=== PATIENT | female | born 1975 | race Caucasian/White ===

== ENCOUNTER 2018-08-07 08:43 | Emergency (ER) | payer BC ==
--- NOTE | 2018-08-07 09:08 | ER Document Report ---
ED General - General Chief Complaint: Abdominal Pain Stated Complaint: L SIDED RIB PAIN X3DAYS Time Seen by Provider: 08/07/18 09:06 Notes: Patient is a 43-year-old female recent cholecystectomy that presents to the emergency department for chief complaint of left upper quadrant pain. Patient recently had a cholecystectomy on 07/30/2018. She was recovering well from the surgery, and then yesterday and into today, she started feeling sharp pain under her left ribs, that was tender to palpate. She was seen at another emergency department and had a CT scan performed yesterday, that she reports demonstrated "gas" and she was discharged to home. She continued to have the pain, she was taking Tylenol, but it is not helping. She was prescribed Henderson but she has not taken that medication. She states the pain is worse with a deep breath, just under her left ribs. She denies noting associated fevers, chills, headaches, nausea, vomiting, diarrhea, dysuria or hematuria. Her cholecystectomy was performed laparoscopically Past Medical History: Denies chronic medical conditions Past Surgical History: Hysterectomy, cholecystectomy Social History: Admits to smoking cigarettes daily, denies alcohol or drug use Family History: Reviewed and noncontributory for presenting illness Allergies: Reviewed, see documented allergy list. REVIEW OF SYSTEMS: Unless otherwise stated in this report the patient's positive and negative responses for review of systems for constitutional, eyes, ENT, cardiovascular, respiratory, gastrointestinal, neurological, genitourinary, musculoskeletal, and integumentary systems and related systems to the presenting problem are either as stated in the HPI or were not pertinent or were negative for the symptoms and/or complaints related to the presenting medical problem. PHYSICAL EXAMINATION: Vital signs reviewed, nursing noted reviewed. GENERAL: Well-appearing, well-nourished and in no acute distress. HEAD: Atraumatic, normocephalic. EYES: Eyes appear normal, extraocular movements intact, sclera anicteric, conjunctiva are normal. ENT: nares patent, oropharynx clear without exudates. Moist mucous membranes. NECK: Normal range of motion, supple without lymphadenopathy LUNGS: Breath sounds clear to auscultation bilaterally and equal. No wheezes rales or rhonchi. HEART: Regular rate and rhythm without murmurs ABDOMEN: Soft, left upper quadrant tenderness to palpation normoactive bowel sounds. No distention, rebound, guarding, or rigidity. No masses appreciated. EXTREMITIES: Nontender, good range of motion, no pitting or edema. NEUROLOGICAL: No focal neurological deficits. Moves all extremities spontaneously Motor and sensory grossly intact on exam. PSYCH: Normal mood, normal affect. SKIN: Warm, Dry, normal turgor, no rashes or lesions noted on exposed skin TRAVEL OUTSIDE OF THE [place] IN LAST 30 DAYS: No - Related Data Allergies/Adverse Reactions: No Known Allergies Allergy (Verified 08/07/18 08:46) Past Medical History - Social History Smoking Status: Current Every Day Smoker Family History: Reviewed & Not Pertinent - Past Medical History Cardiac Medical History: Denies: Hx Coronary Artery Disease, Hx Heart Attack, Hx Hypertension Pulmonary Medical History: Reports: Hx Pneumonia Denies: Hx Asthma, Hx Bronchitis, Hx COPD Neurological Medical History: Denies: Hx Cerebrovascular Accident, Hx Seizures Renal/ Medical History: Reports: Hx Kidney Stones. Denies: Hx Peritoneal Dialysis Musculoskeletal Medical History: Denies Hx Arthritis Past Surgical History: Reports: Hx Breast Surgery, Hx Hysterectomy, Hx Neurologic Surgery - Craniotomy, BRAIN ABSCESS, Hx Thyroid Surgery - PARATHYROIDECTOMY - Immunizations Hx Diphtheria, Pertussis, Tetanus Vaccination: No Hx Pneumococcal Vaccination: 10/22/00 Physical Exam - Vital signs Vitals: Temp Pulse Resp BP Pulse Ox 98.1 F 87 18 112/73 100 08/07/18 08:49 08/07/18 08:49 08/07/18 08:49 08/07/18 08:49 08/07/18 08:49 Course - Re-evaluation Re-evalutation: Patient seen and examined vital signs reviewed. Laboratory data and imaging were ordered as appropriate for the patient's presenting symptoms and complaint, with consideration of any critical or life threatening conditions that may be associated with their obtained history and exam as noted above. Patient was treated with IV fluids and Toradol Results were reviewed when available and demonstrated very mild transaminitis, consistent with post cholecystectomy, not concerning, patient's pain is most consistent with postoperative gas pain, from laparoscopic surgery, is on the left side, and subcostal, and improved with anti-inflammatories. The patient was re-evaluated and was improved, stable, I do not feel that this patient has any life-threatening illnesses at this time, and given that she had CT imaging performed yesterday for the same pain, that was unremarkable, this is most likely as described above postoperative gas pain, this was described to the patient, she understands, she is given anticipatory guidance that this will most likely resolve in 48-72 hours, advised her to take naproxen, or her previously prescribed Henderson if needed for breakthrough pain. Results were discussed with the patient at this point, after careful consideration I feel that that patient can be discharged from the emergency department, the patient was educated treatments and reasons to return to the emergency department based on their presumed diagnosis as noted above, they were advised to followup with a primary care physician in 2-3 days. Patient was agreeable to plan of care. *Note is created using voice recognition software and may contain spelling, syntax or grammatical errors. Laboratory 08/07/18 08/07/18 08/07/18 09:30 09:30 10:00 WBC 5.6 RBC 4.83 Hgb 14.5 Hct 41.5 MCV 86 MCH 30.1 MCHC 35.0 RDW 13.5 Plt Count 244 Seg Neutrophils % 72.1 Lymphocytes % 17.3 Monocytes % 9.1 Eosinophils % 1.3 Basophils % 0.2 Absolute Neutrophils 4.1 Absolute Lymphocytes 1.0 Absolute Monocytes 0.5 Absolute Eosinophils 0.1 Absolute Basophils 0.0 Sodium 138.6 Potassium 4.3 Chloride 106 Carbon Dioxide 25 Anion Gap 8 BUN 13 Creatinine 0.60 Est GFR ( Amer) > 60 Est GFR (Non-Af Amer) > 60 Glucose 90 Calcium 9.5 Total Bilirubin 1.5 H Direct Bilirubin 0.3 Neonat Total Bilirubin Not Reportable Neonat Direct Bilirubin Not Reportable Neonat Indirect Bili Not Reportable AST 33 ALT 120 H Alkaline Phosphatase 62 Total Protein 6.2 L Albumin 3.9 Lipase 208.3 Urine Color YELLOW Urine Appearance SLIGHTLY-CLOUDY Urine pH 5.0 Ur Specific [place] 1.028 Urine Protein NEGATIVE Urine Glucose (UA) NEGATIVE Urine Ketones TRACE H Urine Blood NEGATIVE Urine Nitrite NEGATIVE Urine Bilirubin NEGATIVE Urine Urobilinogen 2.0 H Ur Leukocyte Esterase NEGATIVE Urine WBC (Auto) 2 Urine RBC (Auto) 6 Urine Bacteria (Auto) TRACE Squamous Epi Cells Auto 2 Urine Mucus (Auto) MANY Urine Ascorbic Acid NEGATIVE - Vital Signs Vital signs: Temp Pulse Resp BP Pulse Ox 97.7 F 74 17 111/72 99 08/07/18 12:20 08/07/18 12:20 08/07/18 12:20 08/07/18 12:20 08/07/18 12:20 - Laboratory Result Diagrams: 08/07/18 09:30 08/07/18 09:30 Laboratory results interpreted by me: 08/07/18 08/07/18 09:30 10:00 Total Bilirubin 1.5 H ALT 120 H Total Protein 6.2 L Urine Ketones TRACE H Urine Urobilinogen 2.0 H Discharge - Discharge Clinical Impression: Abdominal pain Qualifiers: Abdominal location: left upper quadrant Qualified Code(s): R10.12 - Left upper quadrant pain Condition: Stable Disposition: HOME, SELF-CARE Instructions: Abdominal Pain ([facility]) Additional Instructions: Please return to the emergency department if you have any worsening, or concern of your symptoms. Please return to the emergency department if you develop chest pain, difficulty breathing, severe abdominal pain, or ongoing vomiting. Please follow-up with your primary care physician in 2-3 days and any other recommended physicians. If prescribed, take all medications as directed. If you have any questions or concerns do not hesitate to return the emergency department for evaluation. Your symptoms should improve in the next 24-72 hours, try taking deep breaths, and take the anti-inflammatory as needed every 12 hours. Prescriptions: Naproxen [Naprosyn] 500 mg PO Q12H #30 tablet Forms: Return to Work Referrals: RAMOS PULIDO MD [ACTIVE STAFF] - Follow up in 3-5 days
[2018-08-07] MEDS ORDERED: NORMAL SALINE 1000 ML 1,000 ML IV ONE (09:37)
[2018-08-07] MEDS ORDERED: KETOROLAC TROMETHAMINE INJ/PF 30 MG/1 ML SDV IV ONE (09:37)
[2018-08-07 09:51] LABS: ABSOLUTE EOSINOPHILS # (AUTO) 0.1 10^3/uL (0.0-0.6); ABSOLUTE MONOCYTES (AUTO) 0.5 10^3/uL (0.1-1.4); ABSOLUTE NEUT (AUTO) 4.1 10^3/uL (1.7-8.2); BASOPHILS % (AUTO) 0.2 % (0-2); EOSINOPHILS % (AUTO) 1.3 % (0-6); HEMATOCRIT 41.5 % (36.0-47.0); HEMOGLOBIN 14.5 g/dL (12.0-15.5); LYMPHOCYTES % (AUTO) 17.3 % (13-45); MEAN CORPUSCULAR HEMOGLOBIN 30.1 pg (27.0-33.4); MEAN CORPUSCULAR VOLUME 86 fl (80-97); MONOCYTES % (AUTO) 9.1 % (3-13); PLATELET COUNT 244 10^3/uL (150-450); RED BLOOD COUNT 4.83 10^6/uL (3.72-5.28); RED CELL DISTRIBUTION WIDTH 13.5 % (11.5-14.0); SEGMENTED NEUTROPHILS % (AUTO) 72.1 % (42-78); TOTAL CELLS COUNTED % (AUTO) 100 %; WHITE BLOOD COUNT 5.6 10^3/uL (4.0-10.5)
[2018-08-07 10:07] LABS: ALANINE AMINOTRANSFERASE 120 U/L (9-52); ALBUMIN 3.9 g/dL (3.5-5.0); ALKALINE PHOSPHATASE 62 U/L (38-126); ANION GAP 8 (5-19); ASPARTATE AMINO TRANSFERASE 33 U/L (14-36); BILIRUBIN,DIRECT 0.3 mg/dL (0.0-0.4); BILIRUBIN,TOTAL 1.5 mg/dL (0.2-1.3); BLOOD UREA NITROGEN 13 mg/dL (7-20); CALCIUM 9.5 mg/dL (8.4-10.2); CARBON DIOXIDE 25 mmol/L (22-30); CHLORIDE 106 mmol/L (98-107); GLUCOSE 90 mg/dL (75-110); LIPASE 208.3 U/L (23-300); POTASSIUM 4.3 mmol/L (3.6-5.0); SODIUM 138.6 mmol/L (137-145); TOTAL PROTEIN 6.2 g/dL (6.3-8.2)
[2018-08-07 10:20] LABS: APPEARANCE,URINE SLIGHTLY-CLOUDY; BILIRUBIN,URINE NEGATIVE (NEGATIVE); COLOR,URINE YELLOW; GLUCOSE, URINE NEGATIVE (NEGATIVE); KETONES,URINE TRACE mg/dL (NEGATIVE); LEUKOCYTE ESTERASE,URINE NEGATIVE (NEGATIVE); NITRITE,URINE NEGATIVE (NEGATIVE); PROTEIN,URINE NEGATIVE (NEGATIVE); URINE SPECIFIC GRAVITY 1.028
[2018-08-07 12:21] VITALS: BP 111/72
== END 2018-08-07 12:20 | disposition home or self-care (01) ==
LOC: ER 08:43
DX: R10.12 Left upper quadrant pain (principal); R07.81 Pleurodynia; Z90.49 Acquired absence of other specified parts of digestive tract; F17.210 Nicotine dependence, cigarettes, uncomplicated
CPT/HCPCS: 99284; 96361; 96374; 36415; 83690; 85025; 80053; 81001; J1885; J7030

== ENCOUNTER 2018-08-17 10:19 | Emergency (ER) | payer BC ==
--- NOTE | 2018-08-17 10:56 | ER Document Report ---
ED General <MICHELLE SAMAYOAI - Last Filed: 08/17/18 13:37> - General TRAVEL OUTSIDE OF THE [place] IN LAST 30 DAYS: No <CARLOS HYDE - Last Filed: 08/17/18 14:02> - General Chief Complaint: Numbness Stated Complaint: HANDS/FEET NUMB Time Seen by Provider: 08/17/18 10:50 Notes: Patient is a 43-year-old female that presents to the emergency department for chief complaint of numbness and tingling in the hands and feet. Patient states she is been having these symptoms for a few days now, she recently had a cholecystectomy. 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 She has been trying to drink milk, but she is been having diarrhea with this, since she just had her gallbladder out. She denies having any fevers, chills, night sweats, trismus, difficulty breathing, or chest pain. Past Medical History: Kidney stones Past Surgical History: Partial parathyroidectomy, hysterectomy, cholecystectomy Social History: Denies current tobacco, alcohol or drug use Family History: Reviewed and noncontributory for presenting illness Allergies: Reviewed, see documented allergy list. REVIEW OF SYSTEMS: Unless otherwise stated in this report the patient's positive and negative responses for review of systems for constitutional, eyes, ENT, cardiovascular, respiratory, gastrointestinal, neurological, genitourinary, musculoskeletal, and integumentary systems and related systems to the presenting problem are either as stated in the HPI or were not pertinent or were negative for the symptoms and/or complaints related to the presenting medical problem. PHYSICAL EXAMINATION: Vital signs reviewed, nursing noted reviewed. GENERAL: Well-appearing, well-nourished and in no acute distress. HEAD: Atraumatic, normocephalic. EYES: Eyes appear normal, extraocular movements intact, sclera anicteric, conjunctiva are normal. ENT: nares patent, oropharynx clear without exudates. Moist mucous membranes. NECK: Normal range of motion, supple without lymphadenopathy LUNGS: Breath sounds clear to auscultation bilaterally and equal. No wheezes rales or rhonchi. HEART: Regular rate and rhythm without murmurs ABDOMEN: Soft, nontender, normoactive bowel sounds. No rebound, guarding, or rigidity. No masses appreciated. EXTREMITIES: Nontender, good range of motion, no pitting or edema. NEUROLOGICAL: No focal neurological deficits. Moves all extremities spontaneously Motor and sensory grossly intact on exam. No clonus or tetany noted on exam PSYCH: Normal mood, normal affect. SKIN: Warm, Dry, normal turgor, no rashes or lesions noted on exposed skin (CARLOS HYDE) - Related Data Allergies/Adverse Reactions: No Known Allergies Allergy (Verified 08/17/18 10:19) Past Medical History - Social History Smoking Status: Never Smoker Family History: Reviewed & Not Pertinent Patient has suicidal ideation: No Patient has homicidal ideation: No - Past Medical History Cardiac Medical History: Denies: Hx Coronary Artery Disease, Hx Heart Attack, Hx Hypertension Pulmonary Medical History: Reports: Hx Pneumonia Denies: Hx Asthma, Hx Bronchitis, Hx COPD Neurological Medical History: Denies: Hx Cerebrovascular Accident, Hx Seizures Renal/ Medical History: Reports: Hx Kidney Stones. Denies: Hx Peritoneal Dialysis Musculoskeletal Medical History: Denies Hx Arthritis Past Surgical History: Reports: Hx Breast Surgery, Hx Cholecystectomy, Hx Hysterectomy, Hx Neurologic Surgery - Craniotomy, BRAIN ABSCESS, Hx Thyroid Surgery - PARATHYROIDECTOMY - Immunizations Hx Diphtheria, Pertussis, Tetanus Vaccination: No Hx Pneumococcal Vaccination: 10/22/00 <CARLOS HYDE - Last Filed: 08/17/18 14:02> - Vital signs Vitals: Temp Pulse Resp BP Pulse Ox 97.9 F 98 14 110/74 99 08/17/18 10:22 08/17/18 10:22 08/17/18 10:22 08/17/18 10:22 08/17/18 10:22 Course - Laboratory Result Diagrams: 08/17/18 11:00 08/17/18 11:00 <KORIN SAMAYOA - Last Filed: 08/17/18 13:37> - Laboratory Result Diagrams: 08/17/18 11:00 08/17/18 11:00 <CARLOS HYDE - Last Filed: 08/17/18 14:02> - Re-evaluation Re-evalutation: Patient seen and examined vital signs reviewed. Laboratory data and imaging were ordered as appropriate for the patient's presenting symptoms and complaint, with consideration of any critical or life threatening conditions that may be associated with their obtained history and exam as noted above. Results were reviewed when available and demonstrated essentially normal blood work, she has slight elevation in bilirubin, which has been chronic for this patient for some time, no evidence of acute liver issues The patient was re-evaluated and was tearful on exam, she was asking what was wrong, stating that she has been stressed, with arguing with her boyfriend, and thinks this may be causing some of her symptoms, at this point I felt that the patient may benefit from behavioral health evaluation, discussed this with her and she was agreeable, consult was placed. I offered her medication for possible anxiety, while in the emergency department, however the patient did drive today and has her son with her, and does not have a ride, so any benzodiazepines or antihistamines. Patient agreeable to discuss with behavioral health and any possible recommendations. Patient was seen by behavioral health, they recommended taking her prescribed hydroxyzine which is just prescribed by her primary care, she is seen at [facility] and has a therapist there, recommended follow-up with them, and to follow-up with her primary care physician on all of her other blood tests that were done recently. Patient agreeable and discharged to home. Evaluation was most consistent with stress reaction/anxiety. Results were discussed with the patient at this point, after careful consideration I feel that that patient can be discharged from the emergency department, the patient was educated treatments and reasons to return to the emergency department based on their presumed diagnosis as noted above, they were advised to followup with a primary care physician in 2-3 days. Patient was agreeable to plan of care. *Note is created using voice recognition software and may contain spelling, syntax or grammatical errors. Laboratory 08/17/18 08/17/18 11:00 11:00 WBC 6.0 RBC 5.09 Hgb 15.3 Hct 43.8 MCV 86 MCH 30.0 MCHC 34.9 RDW 13.4 Plt Count 285 Seg Neutrophils % 66.7 Lymphocytes % 21.5 Monocytes % 10.5 Eosinophils % 0.8 Basophils % 0.5 Absolute Neutrophils 4.0 Absolute Lymphocytes 1.3 Absolute Monocytes 0.6 Absolute Eosinophils 0.0 Absolute Basophils 0.0 Sodium 142.0 Potassium 4.2 Chloride 102 Carbon Dioxide 27 Anion Gap 13 BUN 12 Creatinine 0.63 Est GFR ( Amer) > 60 Est GFR (Non-Af Amer) > 60 Glucose 76 Calcium 9.5 Total Bilirubin 1.8 H Direct Bilirubin 0.2 Neonat Total Bilirubin Not Reportable Neonat Direct Bilirubin Not Reportable Neonat Indirect Bili Not Reportable AST 20 ALT 28 Alkaline Phosphatase 54 Total Protein 6.3 Albumin 4.1 Vitamin B12 331.0 (CARLOS HYDE) - Vital Signs Vital signs: Temp Pulse Resp BP Pulse Ox 97.9 F 72 16 109/71 100 08/17/18 10:22 08/17/18 13:59 08/17/18 13:59 08/17/18 13:59 08/17/18 13:59 - Laboratory Laboratory results interpreted by me: 08/17/18 11:00 Total Bilirubin 1.8 H Discharge <KORIN SAMAYOA - Last Filed: 08/17/18 13:37> <CARLOS HYDE - Last Filed: 08/17/18 14:02> - Discharge Clinical Impression: Stress reaction, Paresthesia Condition: Stable Disposition: HOME, SELF-CARE Instructions: Anxiety ([facility]) Additional Instructions: You were seen in the ED and evaluated by the Medical and Behavioral Health Teams for anxiety and determined to be appropriate for discharge at this time. You were given a resource list of outpatient providers to assist you upon discharge. Also, discussed appropriate coping skills. Referrals: KATIE BOLAÑOS PA-C [Primary Care Provider] - Follow up in 3-5 days
[2018-08-17 11:22] LABS: ABSOLUTE LYMPHOCYTES (AUTO) 1.3 10^3/uL (0.5-4.7); ABSOLUTE MONOCYTES (AUTO) 0.6 10^3/uL (0.1-1.4); BASOPHILS % (AUTO) 0.5 % (0-2); EOSINOPHILS % (AUTO) 0.8 % (0-6); HEMATOCRIT 43.8 % (36.0-47.0); HEMOGLOBIN 15.3 g/dL (12.0-15.5); LYMPHOCYTES % (AUTO) 21.5 % (13-45); MEAN CORPUSCULAR HGB CONC 34.9 g/dL (32.0-36.0); MEAN CORPUSCULAR VOLUME 86 fl (80-97); MONOCYTES % (AUTO) 10.5 % (3-13); PLATELET COUNT 285 10^3/uL (150-450); RED BLOOD COUNT 5.09 10^6/uL (3.72-5.28); RED CELL DISTRIBUTION WIDTH 13.4 % (11.5-14.0); SEGMENTED NEUTROPHILS % (AUTO) 66.7 % (42-78); TOTAL CELLS COUNTED % (AUTO) 100 %
[2018-08-17 11:37] LABS: ALANINE AMINOTRANSFERASE 28 U/L (9-52); ALBUMIN 4.1 g/dL (3.5-5.0); ALKALINE PHOSPHATASE 54 U/L (38-126); ANION GAP 13 (5-19); ASPARTATE AMINO TRANSFERASE 20 U/L (14-36); BILIRUBIN,DIRECT 0.2 mg/dL (0.0-0.4); BILIRUBIN,TOTAL 1.8 mg/dL (0.2-1.3); BLOOD UREA NITROGEN 12 mg/dL (7-20); CALCIUM 9.5 mg/dL (8.4-10.2); CARBON DIOXIDE 27 mmol/L (22-30); CHLORIDE 102 mmol/L (98-107); GLUCOSE 76 mg/dL (75-110); POTASSIUM 4.2 mmol/L (3.6-5.0); TOTAL PROTEIN 6.3 g/dL (6.3-8.2)
[2018-08-17 13:59] VITALS: BP 109/71
--- NOTE | 2018-08-17 14:11 | PSYCHOLOGICAL NOTE ---
Psych Note - Psych Note Date seen by psych provider: 08/17/18 Time seen by psych provider: 01:35 Psych Note: Reason for consult: anxiety PT STATES SHE HAS PROBLEMS WITH HER THYROID. STATES IN THE PAST SHE HAS HAD ISSUES WITH CALCIUM AND POTASSIUM LEVELS. STATES OVER THE PAST FEW DAYS SHE HAS HAD NUMBNESS IN HER HANDS AND FEET. STATES SHE WAS SEEN BY HER PROVIDER YESTERDAY AND BLOOD WORK WAS DONE BUT NO RESULTS YET Patient disclosed that she had a verbal altercation (disagreements over the ex- ) with her live in boyfriend this past night. Patient reports that her body started getting hot and she felt like she was about to faint. Pt. denies homicide/suicide, no prior suicide attempts. Her primary doctor prescribed hxdroxyzine for her panic attacks and picked up the prescription last night. Pt was seeing a therapist last year at [facility] and is interested in getting back into therapy due to relationship discord. This Clinician provided a resource list of outpatient providers to include [facility] and [facility]. Patient is alert and oriented to person, place, time and circumstance. Patient' s mood is dysphoric with a tearful affect. Eye contact was well maintained. Attention and concentration are fair. Conversational speech was within normal rate and tone. Patient presents with intact reality base presentation i.e. thought processes are organized and linear. Intellectual abilities appear to be within average range. Insight, judgment and impulse control is fair. No medication recommendations at this time Diagnosis 300.02 (F41.1) Generalized Anxiety Disorder Impression/Plan: Patient is cleared from acute psychiatric services. Patient denies SI/HI ideation with no plans,means or intent. Patient is planning to contact an outpatient mental health provider to reconvene her therapy and medication management. Patient engages in forward thinking and is interested in counseling for relationsip discord. Dr. Velez was consulted on the care and management of this patient; attending physician is in agreement with recommendations and disposition.
== END 2018-08-17 14:00 | disposition home or self-care (01) ==
LOC: ER 10:19
DX: F43.9 Reaction to severe stress, unspecified (principal); R20.2 Paresthesia of skin; R20.0 Anesthesia of skin; R19.7 Diarrhea, unspecified; E89.0 Postprocedural hypothyroidism; Z90.49 Acquired absence of other specified parts of digestive tract
CPT/HCPCS: 36415; 80053; 82607; 85025; 99285

== ENCOUNTER 2018-09-17 16:11 | Emergency (ER) | payer BC ==
[2018-09-17] MEDS ORDERED: RINGERS SOLUTION,LACTATED 1,000 ML IV ONE (17:27)
[2018-09-17] MEDS ORDERED: ONDANSETRON HCL INJ/PF 4 MG/2 ML SDV IV ONE (17:27)
--- NOTE | 2018-09-17 17:28 | ER Document Report ---
ED Medical Screen (RME) - General Chief Complaint: Headache Stated Complaint: HEADACHE Time Seen by Provider: 09/17/18 17:16 TRAVEL OUTSIDE OF THE [place] IN LAST 30 DAYS: No - Related Data Allergies/Adverse Reactions: No Known Allergies Allergy (Verified 08/17/18 10:19) Past Medical History - Social History Chew tobacco use (# tins/day): No Frequency of alcohol use: None Drug Abuse: None - Past Medical History Cardiac Medical History: Denies: Hx Coronary Artery Disease, Hx Heart Attack, Hx Hypertension Pulmonary Medical History: Reports: Hx Pneumonia Denies: Hx Asthma, Hx Bronchitis, Hx COPD Neurological Medical History: Denies: Hx Cerebrovascular Accident, Hx Seizures Renal/ Medical History: Reports: Hx Kidney Stones. Denies: Hx Peritoneal Dialysis Musculoskeltal Medical History: Denies Hx Arthritis Past Surgical History: Reports: Hx Breast Surgery, Hx Cholecystectomy, Hx Hysterectomy, Hx Neurologic Surgery - Craniotomy, BRAIN ABSCESS, Hx Thyroid Surgery - PARATHYROIDECTOMY - Immunizations Hx Diphtheria, Pertussis, Tetanus Vaccination: No Physical Exam - Vital signs Vitals: Temp Pulse Resp BP Pulse Ox 98.0 F 94 12 119/75 99 09/17/18 16:19 09/17/18 16:19 09/17/18 16:19 09/17/18 16:19 09/17/18 16:19 Course - Re-evaluation Re-evalutation: 43-year-old woman who presents for persistent headache as well as visual disturbance over the last several months with associated tremulousness weakness for which she has been evaluated by an pc installation engineer as well as her primary physician. There is some concern that this could be related to her adrenal glands, her thyroid gland or some other issue but it continued to be called anxiety throughout that time for which she has taken low-dose Ativan with minimal help. We will initiate a broad workup including imaging of the head, blood tests. I have seen and evaluated this patient in rapid medical examination. She will require further evaluation and disposition determination by secondary provider. - Vital Signs Vital signs: Temp Pulse Resp BP Pulse Ox 98.0 F 94 12 119/75 99 09/17/18 16:19 09/17/18 16:19 09/17/18 16:19 09/17/18 16:19 09/17/18 16:19 - Laboratory Result Diagrams: 09/17/18 17:56 09/17/18 17:56 Doctor's Discharge - Discharge Referrals: KATIE BOLAÑOS PA-C [Primary Care Provider] - Follow up as needed
[2018-09-17 18:21] LABS: ABSOLUTE EOSINOPHILS # (AUTO) 0.1 10^3/uL (0.0-0.6); ABSOLUTE LYMPHOCYTES (AUTO) 1.6 10^3/uL (0.5-4.7); ABSOLUTE MONOCYTES (AUTO) 0.6 10^3/uL (0.1-1.4); ABSOLUTE NEUT (AUTO) 3.7 10^3/uL (1.7-8.2); BASOPHILS % (AUTO) 0.4 % (0-2); EOSINOPHILS % (AUTO) 1.1 % (0-6); HEMATOCRIT 41.8 % (36.0-47.0); HEMOGLOBIN 14.3 g/dL (12.0-15.5); LYMPHOCYTES % (AUTO) 27.2 % (13-45); MEAN CORPUSCULAR HEMOGLOBIN 29.7 pg (27.0-33.4); MEAN CORPUSCULAR HGB CONC 34.2 g/dL (32.0-36.0); MEAN CORPUSCULAR VOLUME 87 fl (80-97); MONOCYTES % (AUTO) 9.6 % (3-13); PLATELET COUNT 230 10^3/uL (150-450); RED BLOOD COUNT 4.81 10^6/uL (3.72-5.28); RED CELL DISTRIBUTION WIDTH 13.3 % (11.5-14.0); SEGMENTED NEUTROPHILS % (AUTO) 61.7 % (42-78); TOTAL CELLS COUNTED % (AUTO) 100 %; WHITE BLOOD COUNT 6.1 10^3/uL (4.0-10.5)
--- NOTE | 2018-09-17 18:29 | RADIOLOGY REPORT (SQ) ---
EXAM DESCRIPTION: CT HEAD WITHOUT COMPLETED DATE/TIME: 09/17/2018 6:06 pm REASON FOR STUDY: headache, hx of previous surgeries COMPARISON: None. TECHNIQUE: Axial images acquired through the brain without intravenous contrast. Images reviewed wi th bone, brain and subdural windows. Images stored on PACS. All CT scanners at this facility use dose modulation, iterative reconstruction, and/or weight based d osing when appropriate to reduce radiation dose to as low as reasonably achievable (ALARA). [facility]: Dose Right [facility]: CareDose [facility]: Dose Right [facility]: Teradose 4D [facility]: [employer] RADIATION DOSE: CT Rad equipment meets quality standard of care and radiation dose reduction techniq ues were employed. CTDIvol: 53.2 mGy. DLP: 1124 mGy-cm. mGy. LIMITATIONS: None. FINDINGS: VENTRICLES: Normal size and contour. CEREBRUM: No masses. No hemorrhage. No midline shift. No evidence for acute infarction. Normal gra y/white matter differentiation. A small focus of hypoattenuation seen within the left parieto-occipi john lobe likely represents a small lacunar infarct. . CEREBELLUM: No masses. No hemorrhage. No alteration of density. No evidence for acute infarction. EXTRAAXIAL SPACES: No fluid collections. No masses. ORBITS AND GLOBE: No intra- or extraconal masses. Normal contour of globe without masses. CALVARIUM: No fracture. PARANASAL SINUSES: Postsurgical changes are seen of the right mastoid air cells. The paranasal sinus es and left mastoid air cells appear clear. SOFT TISSUES: No mass or hematoma. OTHER: No other significant finding. IMPRESSION: Left parieto-occipital lacunar infarct. No acute findings. EVIDENCE OF ACUTE STROKE: NO. COMMENT: Quality ID # [id number]: Final reports with documentation of one or more dose reduction techniques (e.g., Automated exposure control, adjustment of the mA and/or kV according to patient size, use of iterative reconstruction technique) TECHNICAL DOCUMENTATION: JOB ID: [id number]- All Rights Reserved Reading location - IP/workstation name: [email or web address]
[2018-09-17 18:37] LABS: ALANINE AMINOTRANSFERASE 16 U/L (9-52); ALBUMIN 4.2 g/dL (3.5-5.0); ALKALINE PHOSPHATASE 49 U/L (38-126); ANION GAP 10 (5-19); ASPARTATE AMINO TRANSFERASE 18 U/L (14-36); BILIRUBIN,DIRECT 0.3 mg/dL (0.0-0.4); BILIRUBIN,TOTAL 1.2 mg/dL (0.2-1.3); BLOOD UREA NITROGEN 16 mg/dL (7-20); CALCIUM 9.1 mg/dL (8.4-10.2); CARBON DIOXIDE 26 mmol/L (22-30); CHLORIDE 106 mmol/L (98-107); GLUCOSE 96 mg/dL (75-110); POTASSIUM 4.3 mmol/L (3.6-5.0); SODIUM 141.8 mmol/L (137-145); TOTAL PROTEIN 6.5 g/dL (6.3-8.2)
[2018-09-17 18:53] LABS: FREE T4 (FREE THYROXINE) 1.03 ng/dL (0.78-2.19)
[2018-09-17 19:07] LABS: THYROID STIMULATING HORMONE 1.22 uIU/mL (0.47-4.68)
--- NOTE | 2018-09-17 22:24 | ER Document Report ---
ED General - General Chief Complaint: Headache Stated Complaint: HEADACHE Time Seen by Provider: 09/17/18 17:16 TRAVEL OUTSIDE OF THE [place] IN LAST 30 DAYS: No - HPI Patient complains to provider of: L sided SMITH since the weekend, bilateral hand numbness, anxiety Notes: 43-year-old female presents to the emergency department with headache on her left side since the weekend, numbness in both hands, nausea, and feeling nervous. She says the headache started this on Sunday on her left side that starts in the front and kind of moves to the back and into her ear, she denies any eye pain or vision changes, endorses dizziness, endorses left ear pain, denies any recent illness or sick contacts. Endorses nausea and states she gets frequent PVCs several a day. Patient recently seen in the emergency department and referred to behavioral health. She says she takes Ativan 0.5 mg twice a day currently and was prescribed hydroxyzine for which she does not take because it gives her "brain fog". - Related Data Allergies/Adverse Reactions: No Known Allergies Allergy (Verified 08/17/18 10:19) Past Medical History - Social History Smoking Status: Current Some Day Smoker Chew tobacco use (# tins/day): No Frequency of alcohol use: None Drug Abuse: None Family History: Reviewed & Not Pertinent Patient has suicidal ideation: No Patient has homicidal ideation: No - Past Medical History Cardiac Medical History: Denies: Hx Coronary Artery Disease, Hx Heart Attack, Hx Hypertension Pulmonary Medical History: Reports: Hx Pneumonia Denies: Hx Asthma, Hx Bronchitis, Hx COPD Neurological Medical History: Denies: Hx Cerebrovascular Accident, Hx Seizures Renal/ Medical History: Reports: Hx Kidney Stones. Denies: Hx Peritoneal Dialysis Musculoskeletal Medical History: Denies Hx Arthritis Past Surgical History: Reports: Hx Breast Surgery, Hx Cholecystectomy, Hx Hysterectomy, Hx Neurologic Surgery - Craniotomy, BRAIN ABSCESS, Hx Thyroid Surgery - PARATHYROIDECTOMY - Immunizations Hx Diphtheria, Pertussis, Tetanus Vaccination: No Hx Pneumococcal Vaccination: 10/22/00 Review of Systems - Review of Systems Constitutional: See HPI EENT: See HPI Cardiovascular: See HPI Respiratory: See HPI Gastrointestinal: See HPI Genitourinary: See HPI Female Genitourinary: No symptoms reported Musculoskeletal: No symptoms reported Skin: No symptoms reported Hematologic/Lymphatic: No symptoms reported Neurological/Psychological: See HPI Physical Exam - Vital signs Vitals: Temp Pulse Resp BP Pulse Ox 98.0 F 94 12 119/75 99 09/17/18 16:19 09/17/18 16:19 09/17/18 16:19 09/17/18 16:19 09/17/18 16:19 Interpretation: Normal - General General appearance: Appears well, Alert - HEENT Head: Normocephalic, Atraumatic Eyes: Normal Pupils: PERRL - Respiratory Respiratory status: No respiratory distress Chest status: Nontender Breath sounds: Normal Chest palpation: Normal - Cardiovascular Rhythm: Regular Heart sounds: Normal auscultation Murmur: No - Abdominal Inspection: Normal Distension: No distension Bowel sounds: Normal Tenderness: Nontender Organomegaly: No organomegaly - Back Back: Normal, Nontender - Extremities General upper extremity: Normal inspection, Nontender, Normal color, Normal ROM , Normal temperature General lower extremity: Normal inspection, Nontender, Normal color, Normal ROM , Normal temperature, Normal weight bearing. No: Lit's sign - Neurological Neuro grossly intact: Yes Cognition: Normal Orientation: AAOx4 Meka Coma Scale Eye Opening: Spontaneous Meka Coma Scale Verbal: Oriented Isom Coma Scale Motor: Obeys Commands Meka Coma Scale Total: 15 Speech: Normal Motor strength normal: LUE, RUE, LLE, RLE Sensory: Normal - Psychological Associated symptoms: Normal affect, Normal mood - Skin Skin Temperature: Warm Skin Moisture: Dry Skin Color: Normal Course - Re-evaluation Re-evalutation: 09/17/18 23:[address] is negative for any acute ischemia or intracranial bleed. All lab work showed no evidence of abnormalities. Most likely this patient's symptoms are related to her anxiety. She states she takes Ativan 0.5 mg 2 times per day and endorses relief of her symptoms. She has a behavioral health appointment for the end of September in which she is waiting to see. No focal neurological deficits, she can feel sensation to light touch bilaterally. Most likely she will benefit from some type of an SSRI to help her symptoms. This time her headache does not represent any life-threatening concern. 09/17/18 23:13 - Vital Signs Vital signs: Temp Pulse Resp BP Pulse Ox 98.0 F 94 12 119/75 99 09/17/18 16:19 09/17/18 16:19 09/17/18 16:19 09/17/18 16:19 09/17/18 16:19 - Laboratory Result Diagrams: 09/17/18 17:56 09/17/18 17:56 Discharge - Discharge Clinical Impression: Headache Qualifiers: Headache type: unspecified Headache chronicity pattern: unspecified pattern Intractability: not intractable Qualified Code(s): R51 - Headache Condition: Good Disposition: HOME, SELF-CARE Instructions: Headache ([facility]) Additional Instructions: Seen in the emergency department this evening for headache and numbness of your hands. Her head CT showed no evidence of any acute injury. Also, your lab work not show any evidence of any illness or any abnormalities. At this point, safe to discharge home. If you notice any weakness, especially weakness on one side, loss of consciousness, vision changes, intractable vomiting, or have any other concerns please return to the emergency department. Referrals: KATIE BOLAÑOS PA-C [Primary Care Provider] - Follow up as needed
[2018-09-17] MEDS ORDERED: IBUPROFEN 600 MG TABLET PO ONE (23:10)
[2018-09-17 23:51] VITALS: BP 104/67
== END 2018-09-17 23:48 | disposition home or self-care (01) ==
LOC: ER 16:11
DX: R51 Headache (principal); R20.0 Anesthesia of skin; F41.9 Anxiety disorder, unspecified; F17.200 Nicotine dependence, unspecified, uncomplicated; Z90.49 Acquired absence of other specified parts of digestive tract; Z90.710 Acquired absence of both cervix and uterus
CPT/HCPCS: 36415; 70450; 80053; 84439; 84443; 85025; 99284

== ENCOUNTER 2019-01-14 20:24 | Emergency (ER) | payer BC, OTHER ==
[2019-01-14] MEDS ORDERED: RINGERS SOLUTION,LACTATED 1,000 ML IV ONE (21:22)
[2019-01-14 21:58] LABS: ABSOLUTE LYMPHOCYTES (AUTO) 1.9 10^3/uL (0.5-4.7); ABSOLUTE MONOCYTES (AUTO) 0.7 10^3/uL (0.1-1.4); ABSOLUTE NEUT (AUTO) 5.4 10^3/uL (1.7-8.2); BASOPHILS % (AUTO) 0.2 % (0-2); EOSINOPHILS % (AUTO) 0.5 % (0-6); HEMATOCRIT 39.5 % (36.0-47.0); HEMOGLOBIN 13.9 g/dL (12.0-15.5); LYMPHOCYTES % (AUTO) 23.9 % (13-45); MEAN CORPUSCULAR HEMOGLOBIN 30.5 pg (27.0-33.4); MEAN CORPUSCULAR HGB CONC 35.1 g/dL (32.0-36.0); MEAN CORPUSCULAR VOLUME 87 fl (80-97); MONOCYTES % (AUTO) 8.5 % (3-13); PLATELET COUNT 228 10^3/uL (150-450); RED BLOOD COUNT 4.55 10^6/uL (3.72-5.28); RED CELL DISTRIBUTION WIDTH 13.5 % (11.5-14.0); SEGMENTED NEUTROPHILS % (AUTO) 66.9 % (42-78); TOTAL CELLS COUNTED % (AUTO) 100 %
[2019-01-14] MEDS ORDERED: KETOROLAC TROMETHAMINE INJ/PF 30 MG/1 ML SDV IV ONE (22:07)
[2019-01-14] MEDS ORDERED: DIPHENHYDRAMINE HCL 50 MG/ML VIAL IV ONE (22:07)
[2019-01-14] MEDS ORDERED: ONDANSETRON HCL INJ/PF 4 MG/2 ML SDV IV ONE (22:07)
[2019-01-14 22:16] LABS: ALANINE AMINOTRANSFERASE 24 U/L (9-52); ALBUMIN 3.9 g/dL (3.5-5.0); ALKALINE PHOSPHATASE 51 U/L (38-126); ANION GAP 5 (5-19); ASPARTATE AMINO TRANSFERASE 22 U/L (14-36); BILIRUBIN,DIRECT 0.1 mg/dL (0.0-0.4); BLOOD UREA NITROGEN 13 mg/dL (7-20); CALCIUM 9.5 mg/dL (8.4-10.2); CARBON DIOXIDE 28 mmol/L (22-30); CHLORIDE 104 mmol/L (98-107); GLUCOSE 92 mg/dL (75-110); POTASSIUM 4.1 mmol/L (3.6-5.0); SODIUM 136.6 mmol/L (137-145); TOTAL PROTEIN 6.3 g/dL (6.3-8.2)
[2019-01-14 22:33] LABS: APPEARANCE,URINE SLIGHTLY-CLOUDY; BILIRUBIN,URINE NEGATIVE (NEGATIVE); COLOR,URINE YELLOW; FREE T3 3.98 pg/mL (2.77-5.27); FREE T4 (FREE THYROXINE) 1.29 ng/dL (0.78-2.19); GLUCOSE, URINE NEGATIVE (NEGATIVE); KETONES,URINE 20 mg/dL (NEGATIVE); LEUKOCYTE ESTERASE,URINE NEGATIVE (NEGATIVE); NITRITE,URINE NEGATIVE (NEGATIVE); PROTEIN,URINE NEGATIVE (NEGATIVE); URINE SPECIFIC GRAVITY 1.019; UROBILINOGEN,URINE NEGATIVE mg/dL (<2.0)
[2019-01-14 22:47] LABS: THYROID STIMULATING HORMONE 2.49 uIU/mL (0.47-4.68)
--- NOTE | 2019-01-14 23:00 | ER Document Report ---
ED Headache - General Chief Complaint: Headache Stated Complaint: HEADACHE Time Seen by Provider: 01/14/19 21:17 Primary Care Provider: KATIE BOLAÑOS PA-C [Primary Care Provider] - Follow up as needed Notes: Patient is a 43-year-old female presents emergency department for intermittent headaches for the last 2 weeks. Patient states she has an extensive history of intermittent headaches and has seen neurology for same. States she is currently trying to wean herself off of her Ativan for anxiety. States she does not feels that she needs it anymore. States she was at [facility] 1 week ago for same headaches. States she was given Benadryl and also had CT imaging of her head. States CT imaging of her head was negative and Benadryl helped her overall headache. States she did not go back to [facility] because she did not like the staff there. Patient states she does have a history of Sanjay's and has been seen by her wardrobe assistant multiple times testing for rheumatoid arthritis and lupus which were both negative. Patient's denying any numbness or tingling in any extremity, loss of bowel or bladder, urinary retention. Patient states headache is generally over her forehead region and sometimes makes her nauseous. Patient has been seen at this facility in the past for also generalized headaches. Past medical history: Sanjay's, vitiligo Medications: Vitamin D, zinc Allergies: None Surgical history: Partial hysterectomy TRAVEL OUTSIDE OF THE [place] IN LAST 30 DAYS: No - Related Data Allergies/Adverse Reactions: No Known Allergies Allergy (Verified 01/14/19 20:30) Past Medical History - General Information source: Patient - Social History Smoking Status: Current Every Day Smoker Chew tobacco use (# tins/day): No Frequency of alcohol use: Rare Drug Abuse: None Family History: Reviewed & Not Pertinent Patient has suicidal ideation: No Patient has homicidal ideation: No - Past Medical History Cardiac Medical History: Denies: Hx Coronary Artery Disease, Hx Heart Attack, Hx Hypertension Pulmonary Medical History: Reports: Hx Pneumonia Denies: Hx Asthma, Hx Bronchitis, Hx COPD Neurological Medical History: Denies: Hx Cerebrovascular Accident, Hx Seizures Renal/ Medical History: Reports: Hx Kidney Stones. Denies: Hx Peritoneal Dialysis Musculoskeletal Medical History: Denies Hx Arthritis Past Surgical History: Reports: Hx Breast Surgery, Hx Cholecystectomy, Hx Hysterectomy, Hx Neurologic Surgery - Craniotomy, BRAIN ABSCESS, Hx Thyroid Surgery - PARATHYROIDECTOMY - Immunizations Hx Diphtheria, Pertussis, Tetanus Vaccination: No Hx Pneumococcal Vaccination: 10/22/00 Review of Systems - Review of Systems Constitutional: No symptoms reported EENT: No symptoms reported Cardiovascular: No symptoms reported Respiratory: No symptoms reported Gastrointestinal: See HPI Genitourinary: No symptoms reported Female Genitourinary: No symptoms reported Musculoskeletal: No symptoms reported Skin: No symptoms reported Hematologic/Lymphatic: No symptoms reported Neurological/Psychological: See HPI Physical Exam - Vital signs Vitals: Temp Pulse Resp BP Pulse Ox 97.8 F 96 16 117/77 96 01/14/19 20:33 01/14/19 20:33 01/14/19 20:33 01/14/19 20:33 01/14/19 20:33 - Notes Notes: GENERAL: Alert, interacts well. No acute distress. Actively on her cell phone upon arrival to the room. HEAD: Normocephalic, atraumatic. EYES: Pupils equal, round, and reactive to light. Extraocular movements intact. ENT: Oral mucosa moist, tongue midline. Nares patent, TM's intact, nonerythematous, nonbulging bilaterally. Pharynx within normal limits no palatal petechiae noted NECK: Full range of motion. Supple. Trachea midline. No nuchal rigidity noted LUNGS: Clear to auscultation bilaterally, no wheezes, rales, or rhonchi. No respiratory distress. HEART: Regular rate and rhythm. No murmur ABDOMEN: Soft, non-tender. Non-distended. Bowel sounds present in all 4 quadrants. EXTREMITIES: Moves all 4 extremities spontaneously. No edema, normal radial and dorsalis pedis pulses bilaterally. No cyanosis. 5 out of 5 strength all 4 extremities BACK: no cervical, thoracic, lumbar midline tenderness. No saddle anesthesia, normal distal neurovascular exam. NEUROLOGICAL: Alert and oriented x3. Normal speech. cranial nerves II through XII grossly intact. PSYCH: Normal affect, normal mood. SKIN: Warm, dry, normal turgor. No rashes or lesions noted. Course - Re-evaluation Re-evalutation: 01/14/19 23:01 Patient CBC is within normal limits, patient's sodium was noted to be 136.6 treated with fluid rehydration in the emergency department. Otherwise CMP is unremarkable. Patient's TSH function free T4 free T3 are also within normal limits. Urine shows no signs of infection. Patient is unable to get a ride home nursing staff is refusing to give patient Benadryl. Discussed with patient she can take Benadryl at home 50 mg to help with her generalized headaches. T oradol and Zofran have helped with her headache and she is no longer nauseated. Discussed close follow-up with primary care provider and neurology. Patient voices understanding is stable for discharge. - Vital Signs Vital signs: Temp Pulse Resp BP Pulse Ox 97.8 F 96 16 116/84 96 01/14/19 20:33 01/14/19 20:33 01/14/19 20:33 01/14/19 21:06 01/14/19 20:33 - Laboratory Result Diagrams: 01/14/19 21:42 01/14/19 21:42 Laboratory results interpreted by me: 01/14/19 01/14/19 21:42 21:42 Sodium 136.6 L Urine Ketones 20 H Urine Ascorbic Acid 40 H Discharge - Discharge Clinical Impression: Headache Qualifiers: Headache type: unspecified Headache chronicity pattern: chronic headache Intractability: not intractable Qualified Code(s): R51 - Headache Condition: Stable Disposition: HOME, SELF-CARE Instructions: Antinausea Medication ([facility]), Use of Diphenhydramine, Headache ([facility]), Toradol Injection ([facility]) Additional Instructions: As we discussed you have been seen and treated in the emergency department for your generalized headache. Your thyroid function is within normal limits at today's visit. Your labs revealed no signs of abnormalities. Please make sure you continue to stay well-hydrated and take Benadryl every 6 hours for generalized headache. You can also take [id number] Tylenol or Motrin. Please return to the emergency room should you have any other concerning symptoms. Prescriptions: Diphenhydramine HCl [Benadryl 50 mg Capsule] 1 cap PO Q6 PRN #14 capsule PRN Reason: Forms: Return to Work Referrals: KATIE BOLAÑOS PA-C [Primary Care Provider] - Follow up as needed
[2019-01-14 23:19] VITALS: BP 95/55
== END 2019-01-14 23:16 | disposition home or self-care (01) ==
LOC: ER 20:24
DX: R51 Headache (principal); F17.200 Nicotine dependence, unspecified, uncomplicated; Z87.442 Personal history of urinary calculi; Z90.49 Acquired absence of other specified parts of digestive tract; Z90.710 Acquired absence of both cervix and uterus
CPT/HCPCS: 99283; 96361; 96374; 96375; 36415; 84439; 84443; 85025; 80053; 81001; 84481; J1885; J2405; J7120

== ENCOUNTER 2019-04-08 07:13 | Emergency (ER) | payer OTHER ==
[2019-04-08] MEDS ORDERED: NORMAL SALINE 1000 ML 1,000 ML IV ONE (09:46)
[2019-04-08] MEDS ORDERED: KETOROLAC TROMETHAMINE INJ/PF 30 MG/1 ML SDV IV ONE (09:46)
[2019-04-08] MEDS ORDERED: METOCLOPRAMIDE HCL INJ/PF 10 MG/2 ML SDV IV ONE (09:46)
[2019-04-08] MEDS ORDERED: MAGNESIUM SULFATE/D5W 1 GM/100 ML RTUPB IV ONE (09:46)
[2019-04-08] MEDS ORDERED: DEXAMETHASONE SOD PHOS INJ 10 MG/1 ML VIAL IV ONE (09:46)
--- NOTE | 2019-04-08 09:47 | ER Document Report ---
ED General - General Chief Complaint: Headache >24 hrs old Stated Complaint: HEADACHE Time Seen by Provider: 04/08/19 09:21 Primary Care Provider: KATIE BOLAÑOS PA-C [Primary Care Provider] - Follow up in 3-5 days Notes: Patient is a 43-year-old female with anxiety that presents to the emergency department for chief complaint of headache for 8 days. Patient reports having tightness across the top of her head over the past 8 days, she is tried taking [id number] Tylenol Motrin without much improvement of her symptoms, she denies having any nausea, vomiting, vision changes, numbness, weakness or tingling. She also denies having any fever, neck stiffness or pain. She describes the headache as an ache and sharpness at times, currently rates it as a 3 out of 10. She was worried because she has child had mastoiditis and a brain abscess, and was worried about that in particular, although she has not had fever or nausea or vomiting or any recent illnesses otherwise. Past Medical History: Anxiety Past Surgical History: Mastoidectomy Social History: Admits to occasional cigarette use, denies alcohol or illicit drug use. Family History: Reviewed and noncontributory for presenting illness Allergies: Reviewed, see documented allergy list. REVIEW OF SYSTEMS: Other than noted above, the 12 point review of systems was reviewed with the patient and were negative, all pertinent findings are included in the HPI. PHYSICAL EXAMINATION: Vital signs reviewed, nursing noted reviewed. GENERAL: Well-appearing, well-nourished and in no acute distress. HEAD: Atraumatic, normocephalic. EYES: Eyes appear normal, extraocular movements intact, sclera anicteric, conjunctiva are normal. ENT: nares patent, oropharynx clear without exudates. Moist mucous membranes. TMs appear normal bilaterally NECK: Normal range of motion, supple without lymphadenopathy, no signs of meningismus LUNGS: Breath sounds clear to auscultation bilaterally and equal. No wheezes rales or rhonchi. HEART: Regular rate and rhythm without murmurs ABDOMEN: Soft, nontender, normoactive bowel sounds. No rebound, guarding, or rigidity. No masses appreciated. EXTREMITIES: Nontender, good range of motion, no pitting or edema. NEUROLOGICAL: No focal neurological deficits. Moves all extremities spontaneously Motor and sensory grossly intact on exam. PSYCH: Normal mood, normal affect. SKIN: Warm, Dry, normal turgor, no rashes or lesions noted on exposed skin TRAVEL OUTSIDE OF THE [place] IN LAST 30 DAYS: No - Related Data Allergies/Adverse Reactions: No Known Allergies Allergy (Verified 04/08/19 07:20) Past Medical History - Social History Smoking Status: Unknown if Ever Smoked Family History: Reviewed & Not Pertinent Patient has suicidal ideation: No Patient has homicidal ideation: No - Past Medical History Cardiac Medical History: Denies: Hx Coronary Artery Disease, Hx Heart Attack, Hx Hypertension Pulmonary Medical History: Reports: Hx Pneumonia Denies: Hx Asthma, Hx Bronchitis, Hx COPD Neurological Medical History: Denies: Hx Cerebrovascular Accident, Hx Seizures Renal/ Medical History: Reports: Hx Kidney Stones. Denies: Hx Peritoneal Dialysis Musculoskeletal Medical History: Denies Hx Arthritis Past Surgical History: Reports: Hx Breast Surgery, Hx Cholecystectomy, Hx Hysterectomy, Hx Neurologic Surgery - Craniotomy, BRAIN ABSCESS, Hx Thyroid Surgery - PARATHYROIDECTOMY - Immunizations Hx Diphtheria, Pertussis, Tetanus Vaccination: No Hx Pneumococcal Vaccination: 10/22/00 Physical Exam - Vital signs Vitals: Temp Pulse Resp BP Pulse Ox 97.7 F 77 15 109/72 98 04/08/19 07:20 04/08/19 07:20 04/08/19 07:20 04/08/19 07:20 04/08/19 07:20 Course - Re-evaluation Re-evalutation: Patient seen and examined vital signs reviewed. Laboratory data and/or imaging were ordered as appropriate for the patient's presenting symptoms and complaint, with consideration of any critical or life threatening conditions that may be associated with their obtained history and exam as noted above. Patient was treated with IV fluids, dexamethasone, magnesium, Toradol, Reglan Results were reviewed when available and demonstrated negative CT imaging of the brain The patient was re-evaluated and was stable and much improved, symptoms essentially completely resolved Evaluation was most consistent with headache, low suspicion for acute intracranial injury such as subarachnoid hemorrhage, in the setting of gradual onset of headache, occurred over the past 8 days, and patient is improved, and appears well at this time. Plan to discharge the patient home with a prescription for Fioricet, advised follow-up with primary care. Results were discussed with the patient at this point, after careful consideration I feel that that patient can be discharged from the emergency department, the patient was educated treatments and reasons to return to the emergency department based on their presumed diagnosis as noted above, they were advised to followup with a primary care physician in 2-3 days. Patient was agreeable to plan of care. *Note is created using voice recognition software and may contain spelling, syntax or grammatical errors. Head CT 04/08/19 11:01 IMPRESSION: No acute abnormality in the brain. EVIDENCE OF ACUTE STROKE: NO. - Vital Signs Vital signs: Temp Pulse Resp BP Pulse Ox 98.3 F 74 15 103/63 99 04/08/19 12:22 04/08/19 12:22 04/08/19 07:20 04/08/19 12:22 04/08/19 12:22 Discharge - Discharge Clinical Impression: Headache Qualifiers: Headache type: unspecified Headache chronicity pattern: unspecified pattern Intractability: not intractable Qualified Code(s): R51 - Headache Condition: Stable Disposition: HOME, SELF-CARE Instructions: Headache ([facility]) Additional Instructions: Please follow-up with your primary care physician, you may take the prescribed medication if your headache does come back, does recommend not taking it at the same time that you take your Ativan. Prescriptions: Butalb/Acetaminophen/Caffeine [Fioricet (50-325-40 mg) Tablet] 1 tab PO Q6H PRN #12 tab PRN Reason: headache Forms: Return to Work Referrals: KATIE BOLAÑOS PA-C [Primary Care Provider] - Follow up in 3-5 days
--- NOTE | 2019-04-08 11:36 | RADIOLOGY REPORT (SQ) ---
EXAM DESCRIPTION: CT HEAD WITHOUT COMPLETED DATE/TIME: 04/08/2019 11:22 am REASON FOR STUDY: headache COMPARISON: 09/17/2018 TECHNIQUE: Axial images acquired through the brain without intravenous contrast. Images reviewed wi th bone, brain and subdural windows. Additional sagittal and coronal reconstructions were generated. Images stored on PACS. All CT scanners at this facility use dose modulation, iterative reconstruction, and/or weight based d osing when appropriate to reduce radiation dose to as low as reasonably achievable (ALARA). [facility]: Dose Right [facility]: CareDose [facility]: Dose Right [facility]: Teradose 4D [facility]: [email or web address] RADIATION DOSE: CT Rad equipment meets quality standard of care and radiation dose reduction techniq ues were employed. CTDIvol: 53.2 mGy. DLP: 1124 mGy-cm. mGy. LIMITATIONS: None. FINDINGS: VENTRICLES: Normal size and contour. CEREBRUM: No masses. No hemorrhage. No midline shift. No evidence for acute infarction. CEREBELLUM: No masses. No hemorrhage. No alteration of density. No evidence for acute infarction. EXTRAAXIAL SPACES: No fluid collections. No masses. ORBITS AND GLOBE: No intra- or extraconal masses. Normal contour of globe without masses. CALVARIUM: No fracture. PARANASAL SINUSES: No fluid or mucosal thickening. SOFT TISSUES: No mass or hematoma. OTHER: No other significant finding. IMPRESSION: No acute abnormality in the brain. EVIDENCE OF ACUTE STROKE: NO. COMMENT: Quality ID # [id number]: Final reports with documentation of one or more dose reduction techniques (e.g., Automated exposure control, adjustment of the mA and/or kV according to patient size, use of iterative reconstruction technique) TECHNICAL DOCUMENTATION: JOB ID: [id number] [employer]- All Rights Reserved Reading location - IP/workstation name: [email or web address]
[2019-04-08 12:29] VITALS: BP 103/63
== END 2019-04-08 12:40 | disposition home or self-care (01) ==
LOC: ER 07:13
DX: R51 Headache (principal); Z87.442 Personal history of urinary calculi; Z90.49 Acquired absence of other specified parts of digestive tract; Z90.710 Acquired absence of both cervix and uterus
CPT/HCPCS: 99284; 96361; 96374; 96375; 70450; J1885; J2765; J3475; J7030; J1100